=== PATIENT | male | born 1975 | race Caucasian/White ===

== ENCOUNTER 2017-11-18 17:40 | Inpatient (IN) | payer OTHER ==
[~2017-11-18] VITALS: Ht 193 cm; Wt 88.5 kg
[2017-11-18 17:45] VITALS: BP 141/89
[2017-11-18] MEDS ORDERED: ABILIFY15 MG ORAL (17:47)
[2017-11-18] MEDS ORDERED: LEXAPRO10 MG ORAL (17:47)
[2017-11-18] MEDS ORDERED: WELLBUTRIN SR100 MG ORAL (17:47)
[2017-11-18] MEDS ORDERED: KLONOPIN0.5 MG ORAL (17:47)
[2017-11-18] MEDS ORDERED: NALTREXONE HCL50 MG PO (17:47)
--- NOTE | 2017-11-18 18:06 | Emergency Room Report ---
History of Present Illness General Chief Complaint: Syncope Source: Patient, EMS Present Illness HPI 42-year-old male, history of seizures 10 years ago, used to be on Depakote, anxiety, presenting with syncopal episode. Per EMS, his coworkers came to his house to tell him that he got fired. He became extremely anxious and he had a witnessed syncopal episode. He did not hit the ground. When EMS got there he was awake but very diaphoretic. They checked a monitor and sometimes his heart rate would go as low as 37, but he would be awake and alert. Right now patient is just complaining of anxiety as well as chest pain. Did say that he took a Klonopin. Denies any other drug use. EMS says that there was no seizure like activity Allergies: Uncoded Allergies: PENICILLIN (Allergy, Unknown, 11/18/17) Patient History Past Medical History: see triage record Past Surgical History: none Pertinent Family History: none Reviewed Nursing Documentation: PMH: Agreed; PSxH: Agreed Nursing Documentation-PMH Past Medical History: No History, Except For Hx Gastrointestinal Problems: Yes - Crohn's disease History Of Psychiatric Problem: Yes - Anxiety Hx Seizures: Yes Review of Systems All Other Systems: negative except mentioned in HPI Physical Exam Vital Signs Date Time Temp Pulse Resp B/P (MAP) Pulse Ox O2 Delivery O2 Flow Rate FiO2 11/18/17 17:37 97.5 67 16 123/80 99 Room Air 97.5 Sp02 EP Interpretation: reviewed, normal General Appearance: alert, GCS 15, non-toxic, moderate distress Head: normocephalic, atraumatic Eyes: bilateral eye normal inspection, bilateral eye PERRL, bilateral eye EOMI ENT: normal ENT inspection, normal pharynx, normal voice, moist mucus membranes Neck: normal inspection, full range of motion, supple Respiratory: normal inspection, lungs clear, normal breath sounds, no respiratory distress, no retraction, no wheezing, speaking full sentences, chest symmetrical Cardiovascular #1: normal inspection, regular rate, rhythm, normal capillary refill Cardiovascular #2: 2+ radial (R), 2+ radial (L) Gastrointestinal: normal inspection, non tender, soft, non-distended, no guarding Musculoskeletal: normal inspection, back normal, normal range of motion, non- tender Neurologic: normal inspection, alert, oriented x3, responsive, creative engagement director III-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 orthostatic / hypovolemic/dehydration vs. cardiac arrhythmia (SVT , Afib) vs. cardiac vs. metabolic (hypoglycemia, hypoxia) versus toxicology Plan: bgm, cbc, bmp, ekg, cxr consider IVF ER course: Patient has otherwise been stable during ED stay, no episodes of bradycardia, workup is negative with the exception of mild hypokalemia. At this time patient still does not recall how he syncopized, and in the absence of prodromal symptoms, unlikely too. Vasovagal reaction, and the setting of him having a history of heart rate in the 30s he will require admission to the hospital Disposition: Patient is be admitted to tele under Dr Hale who has accepted pt under his care Please note that this Emergency Department Report was dictated using [employer] ([employer])form setter technology software, occasionally this can lead to erroneous entry secondary to interpretation by the dictation equipment. EKG Diagnostic Results EP Interpretation: Yes Rate: Bradycardic Rhythm: NSR ST Segments: T-wave inversion in lead 3 ASA given to patient: No Rhythm Strip EP Interpretation: Yes Rate: 54 Rhythm: NSR, no PVCs, no ectopy Chest X-ray CXR: Ordered: Yes 1 view Indication: Chest pain EP interpretation: Yes Interpretation: No consolidation, no effusion, no PTX, no acute cardiopulmonary disease Impression: No acute disease Electronically signed by Minnie Laureano MD Laboratory Tests Test 11/18/17 17:45 11/18/17 18:30 White Blood Count 6.8 K/UL (4.8-10.8) Red Blood Count 4.99 M/UL (4.70-6.10) Hemoglobin 15.3 G/DL (14.2-18.0) Hematocrit 43.7 % (42.0-52.0) Mean Corpuscular Volume 88 FL (80-99) Mean Corpuscular Hemoglobin 30.7 PG (27.0-31.0) Mean Corpuscular Hemoglobin Concent 35.1 G/DL (32.0-36.0) Red Cell Distribution Width 11.7 % (11.6-14.8) Platelet Count 200 K/UL (150-450) Mean Platelet Volume 5.3 FL (6.5-10.1) L Neutrophils (%) (Auto) 68.1 % (45.0-75.0) Lymphocytes (%) (Auto) 21.4 % (20.0-45.0) Monocytes (%) (Auto) 7.1 % (1.0-10.0) Eosinophils (%) (Auto) 2.8 % (0.0-3.0) Basophils (%) (Auto) 0.6 % (0.0-2.0) Sodium Level 139 MMOL/L (136-145) Potassium Level 3.1 MMOL/L (3.5-5.1) L Chloride Level 104 MMOL/L (98-107) Carbon Dioxide Level 27 MMOL/L (21-32) Anion Gap 8 mmol/L (5-15) Blood Urea Nitrogen 13 mg/dL (7-18) Creatinine 1.0 MG/DL (0.55-1.30) Estimate Glomerular Filtration Rate > 60 mL/min (>60) Glucose Level 131 MG/DL (74-106) H Calcium Level 9.4 MG/DL (8.5-10.1) Total Bilirubin 0.8 MG/DL (0.2-1.0) Aspartate Amino Transferase (AST) 16 U/L (15-37) Alanine Aminotransferase (ALT) 26 U/L (12-78) Alkaline Phosphatase 71 U/L (46-116) Troponin I 0.000 ng/mL (0.000-0.056) Total Protein 7.6 G/DL (6.4-8.2) Albumin 3.8 G/DL (3.4-5.0) Globulin 3.8 g/dL Albumin/Globulin Ratio 1.0 (1.0-2.7) Urine Color Yellow Urine Appearance Clear Urine pH 5 (4.5-8.0) Urine Specific [place] 1.025 (1.005-1.035) Urine Protein 1+ (NEGATIVE) H Urine Glucose (UA) Negative (NEGATIVE) Urine Ketones 1+ (NEGATIVE) H Urine Blood Negative (NEGATIVE) Urine Nitrite Negative (NEGATIVE) Urine Bilirubin Negative (NEGATIVE) Urine Urobilinogen Normal MG/DL (0.0-1.0) Urine Leukocyte Esterase Negative (NEGATIVE) Urine RBC 0-2 /HPF (0 - 0) H Urine WBC 0-2 /HPF (0 - 0) Urine Squamous Epithelial Cells None /LPF (NONE/OCC) Urine Bacteria None /HPF (NONE) Opiates Screen Pending Urine Opiates Screen Negative (NEGATIVE) Oxycodone Level Pending Blood Methadone Screen Pending Blood Propoxyphene Screen Pending Blood Barbiturates Screen Pending Urine Barbiturates Screen Negative (NEGATIVE) Phencyclidine (PCP) Screen Pending Amphetamines Screen Pending Urine Amphetamines Screen Negative (NEGATIVE) Benzodiazepines Screen Pending Urine Benzodiazepines Screen Negative (NEGATIVE) Blood Cocaine/Metabolite Screen Pending Urine Cocaine Screen Negative (NEGATIVE) Marijuana (THC) Screen Pending Urine Marijuana (THC) Screen Negative (NEGATIVE) Blood Drug Screen Comment Pending Last Vital Signs Date Time Temp Pulse Resp B/P (MAP) Pulse Ox O2 Delivery O2 Flow Rate FiO2 11/18/17 17:45 97.5 58 16 141/89 99 Room Air 97.5 Disposition: ADMITTED INPATIENT Condition: Minnie Centeno M.D. Nov 18, 2017 18:06
[2017-11-18 18:07] LABS: BASOPHILS % (AUTO) 0.6 % (0.0-2.0); EOSINOPHILS % (AUTO) 2.8 % (0.0-3.0); HEMATOCRIT 43.7 % (42.0-52.0); HEMOGLOBIN 15.3 G/DL (14.2-18.0); LYMPHOCYTES % (AUTO) 21.4 % (20.0-45.0); MEAN CORPUSCULAR VOLUME 88 FL (80-99); MONOCYTES % (AUTO) 7.1 % (1.0-10.0); NEUTROPHILS % (AUTO) 68.1 % (45.0-75.0); PLATELET COUNT 200 K/UL (150-450); RED BLOOD COUNT 4.99 M/UL (4.70-6.10); RED CELL DISTRIBUTION WIDTH 11.7 % (11.6-14.8); WHITE BLOOD COUNT 6.8 K/UL (4.8-10.8)
[2017-11-18 18:21] LABS: ANION GAP 8 mmol/L (5-15); BLOOD UREA NITROGEN 13 mg/dL (7-18); CALCIUM 9.4 MG/DL (8.5-10.1); CARBON DIOXIDE 27 MMOL/L (21-32); CHLORIDE 104 MMOL/L (98-107); POTASSIUM 3.1 MMOL/L (3.5-5.1); SODIUM 139 MMOL/L (136-145)
[2017-11-18 18:24] LABS: ALANINE AMINOTRANSFERASE 26 U/L (12-78); ALBUMIN 3.8 G/DL (3.4-5.0); ALKALINE PHOSPHATASE 71 U/L (46-116); ASPARTATE AMINO TRANSFERASE 16 U/L (15-37); BILIRUBIN,TOTAL 0.8 MG/DL (0.2-1.0)
[2017-11-18 18:37] VITALS: BP 139/89
[2017-11-18 19:00] LABS: APPEARANCE,URINE CLEAR; BILIRUBIN, URINE NEGATIVE (NEGATIVE); GLUCOSE, URINE (UA) NEGATIVE (NEGATIVE); KETONES,URINE 1+ (NEGATIVE); LEUKOCYTE ESTERASE ,URINE NEGATIVE (NEGATIVE); NITRITE,URINE NEGATIVE (NEGATIVE); PH,URINE 5 (4.5-8.0); PROTEIN,URINE 1+ (NEGATIVE); UROBILINOGEN,URINE NORMAL MG/DL (0.0-1.0)
[2017-11-18 19:01] LABS: COLOR,URINE YELLOW
[2017-11-18 19:22] VITALS: BP 133/84
[2017-11-18 20:18] VITALS: BP 130/78
[2017-11-18 21:53] VITALS: BP 128/65
[2017-11-19] VITALS: BP 144/97
[2017-11-19] MEDS ORDERED: clonazePAM 0.5mg tab ORAL PRN
[2017-11-19 04:00] VITALS: BP 142/77
[2017-11-19 08:00] VITALS: BP 137/81
[2017-11-19 08:01] LABS: BASOPHILS % (AUTO) 0.7 % (0.0-2.0); EOSINOPHILS % (AUTO) 3.3 % (0.0-3.0); HEMATOCRIT 45.3 % (42.0-52.0); HEMOGLOBIN 15.8 G/DL (14.2-18.0); LYMPHOCYTES % (AUTO) 18.5 % (20.0-45.0); MEAN CORPUSCULAR VOLUME 88 FL (80-99); MONOCYTES % (AUTO) 7.2 % (1.0-10.0); NEUTROPHILS % (AUTO) 70.3 % (45.0-75.0); PLATELET COUNT 186 K/UL (150-450); RED BLOOD COUNT 5.16 M/UL (4.70-6.10); RED CELL DISTRIBUTION WIDTH 11.7 % (11.6-14.8); WHITE BLOOD COUNT 8.3 K/UL (4.8-10.8)
[2017-11-19 08:08] LABS: ANION GAP 5 mmol/L (5-15); BLOOD UREA NITROGEN 14 mg/dL (7-18); CARBON DIOXIDE 32 MMOL/L (21-32); CHLORIDE 105 MMOL/L (98-107); PHOSPHORUS 4.3 MG/DL (2.5-4.9); POTASSIUM 3.6 MMOL/L (3.5-5.1); SODIUM 142 MMOL/L (136-145)
[2017-11-19] MEDS ORDERED: Heparin 5000 units/ml inj SUBQ SCH (09:00)
[2017-11-19] MEDS ORDERED: BuPROPion SR 150mg tab ORAL SCH (09:00)
--- NOTE | 2017-11-19 11:58 | Diagnostic Imaging Report ---
Indication: Chest pain Comparison: None A single view chest radiograph was obtained. Findings: Cardiomediastinal appearance is within normal limits for age. Pulmonary vascularity is appropriate. The diaphragmatic contour is smooth and costophrenic angles are sharp. No pleural effusions are identified. The bones are unremarkable. Impression: No acute findings
--- NOTE | 2017-11-19 12:03 | Consultation ---
History of Present Illness General Date patient seen: Nov 19, 2017 Chief Complaint: Syncope Present Illness HPI 42 year old male came from home for near syncopal episode and bradycardia. No previous OH/PE/DVT/CVA/Arrhythmias. Hx of chrohs in remission and depression/ anxiety. He got fired from h is job today and had pre syncope. Currently baseline with no complaints, NO injury/trauma. Chest x ray clear, labs normal, UDS negative. Allergies: Coded Allergies: CODEINE (Verified Allergy, Unknown, 11/18/17) MERCAPTOPURINE (Verified Allergy, Unknown, 11/18/17) Uncoded Allergies: PENICILLIN (Allergy, Unknown, 11/18/17) Medication History Scheduled Aripiprazole* (Abilify*), 15 MG ORAL DAILY, (Reported) Bupropion Sr* (Wellbutrin Sr*), 300 MG ORAL TID, (Reported) Escitalopram Oxalate* (Lexapro*), Unknown Dose ORAL DAILY, (Reported) Naltrexone Hcl (Naltrexone Hcl), Unknown Dose PO DAILY, (Reported) Scheduled PRN Clonazepam* (Klonopin*), 0.5 MG ORAL Q6H PRN for For Anxiety, (Reported) Patient History Healthcare decision maker Resuscitation status Full Code Advanced Directive on File Review of Systems Constitutional: Reports: no symptoms Eye: Reports: no symptoms ENT: Reports: no symptoms Respiratory: Reports: no symptoms Cardiovascular: Reports: no symptoms Gastrointestinal: Reports: no symptoms Genitourinary: Reports: no symptoms Musculoskeletal: Reports: no symptoms Skin: Reports: no symptoms Psychiatric: Reports: no symptoms Neurological: Reports: no symptoms Endocrine: Reports: no symptoms Hematologic/Lymphatic: Reports: no symptoms Physical Exam General Appearance: no apparent distress, alert Lines, tubes and drains: peripheral HEENT: normocephalic, atraumatic Neck: non-tender, normal alignment Respiratory/Chest: chest wall non-tender, lungs clear Cardiovascular/Chest: normal peripheral pulses, normal rate, regular rhythm Abdomen: normal bowel sounds, non tender Extremities: normal range of motion, non-tender 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 normal, no motor/sensory deficits, alert, oriented x 3, responsive Last 24 Hour Vital Signs Date Time Temp Pulse Resp B/P (MAP) Pulse Ox O2 Delivery O2 Flow Rate FiO2 11/19/17 11:28 Room Air 11/19/17 08:00 56 11/19/17 08:00 98.6 59 20 137/81 (99) 98 98.6 11/19/17 04:00 49 11/19/17 04:00 97.9 56 20 142/77 (98) 98 97.9 11/19/17 00:18 Room Air 11/19/17 00:00 58 11/19/17 00:00 98.0 65 20 144/97 (113) 97 98.0 11/18/17 22:32 97.5 63 18 128/65 99 Room Air 97.5 11/18/17 21:53 97.5 63 18 128/65 99 Room Air 97.5 11/18/17 21:39 97.8 11/18/17 20:24 97.8 11/18/17 20:18 97.8 64 18 130/78 99 Room Air 97.8 11/18/17 19:22 98.0 62 20 133/84 99 Room Air 98.0 11/18/17 18:37 97.5 63 16 139/89 99 Room Air 97.5 11/18/17 17:45 97.5 58 16 141/89 99 Room Air 97.5 11/18/17 17:37 97.5 67 16 123/80 99 Room Air 97.5 Intake and Output 11/18/17 11/19/17 19:00 07:00 # Voids 1 2 Laboratory Tests Test 11/18/17 17:45 11/18/17 18:30 11/19/17 06:50 White Blood Count 6.8 K/UL (4.8-10.8) 8.3 K/UL (4.8-10.8) Red Blood Count 4.99 M/UL (4.70-6.10) 5.16 M/UL (4.70-6.10) Hemoglobin 15.3 G/DL (14.2-18.0) 15.8 G/DL (14.2-18.0) Hematocrit 43.7 % (42.0-52.0) 45.3 % (42.0-52.0) Mean Corpuscular Volume 88 FL (80-99) 88 FL (80-99) Mean Corpuscular Hemoglobin 30.7 PG (27.0-31.0) 30.5 PG (27.0-31.0) Mean Corpuscular Hemoglobin Concent 35.1 G/DL (32.0-36.0) 34.8 G/DL (32.0-36.0) Red Cell Distribution Width 11.7 % (11.6-14.8) 11.7 % (11.6-14.8) Platelet Count 200 K/UL (150-450) 186 K/UL (150-450) Mean Platelet Volume 5.3 FL (6.5-10.1) L 5.6 FL (6.5-10.1) L Neutrophils (%) (Auto) 68.1 % (45.0-75.0) 70.3 % (45.0-75.0) Lymphocytes (%) (Auto) 21.4 % (20.0-45.0) 18.5 % (20.0-45.0) L Monocytes (%) (Auto) 7.1 % (1.0-10.0) 7.2 % (1.0-10.0) Eosinophils (%) (Auto) 2.8 % (0.0-3.0) 3.3 % (0.0-3.0) H Basophils (%) (Auto) 0.6 % (0.0-2.0) 0.7 % (0.0-2.0) Sodium Level 139 MMOL/L (136-145) 142 MMOL/L (136-145) Potassium Level 3.1 MMOL/L (3.5-5.1) L 3.6 MMOL/L (3.5-5.1) Chloride Level 104 MMOL/L (98-107) 105 MMOL/L (98-107) Carbon Dioxide Level 27 MMOL/L (21-32) 32 MMOL/L (21-32) Anion Gap 8 mmol/L (5-15) 5 mmol/L (5-15) Blood Urea Nitrogen 13 mg/dL (7-18) 14 mg/dL (7-18) Creatinine 1.0 MG/DL (0.55-1.30) 1.0 MG/DL (0.55-1.30) Estimat Glomerular Filtration Rate > 60 mL/min (>60) > 60 mL/min (>60) Glucose Level 131 MG/DL (74-106) H 99 MG/DL (74-106) Calcium Level 9.4 MG/DL (8.5-10.1) 9.0 MG/DL (8.5-10.1) Total Bilirubin 0.8 MG/DL (0.2-1.0) Aspartate Amino Transf (AST/SGOT) 16 U/L (15-37) Alanine Aminotransferase (ALT/SGPT) 26 U/L (12-78) Alkaline Phosphatase 71 U/L (46-116) Troponin I 0.000 ng/mL (0.000-0.056) Total Protein 7.6 G/DL (6.4-8.2) Albumin 3.8 G/DL (3.4-5.0) Globulin 3.8 g/dL Albumin/Globulin Ratio 1.0 (1.0-2.7) Urine Color Yellow Urine Appearance Clear Urine pH 5 (4.5-8.0) Urine Specific [place] 1.025 (1.005-1.035) Urine Protein 1+ (NEGATIVE) H Urine Glucose (UA) Negative (NEGATIVE) Urine Ketones 1+ (NEGATIVE) H Urine Blood Negative (NEGATIVE) Urine Nitrite Negative (NEGATIVE) Urine Bilirubin Negative (NEGATIVE) Urine Urobilinogen Normal MG/DL (0.0-1.0) Urine Leukocyte Esterase Negative (NEGATIVE) Urine RBC 0-2 /HPF (0 - 0) H Urine WBC 0-2 /HPF (0 - 0) Urine Squamous Epithelial Cells None /LPF (NONE/OCC) Urine Bacteria None /HPF (NONE) Opiates Screen Pending Urine Opiates Screen Negative (NEGATIVE) Oxycodone Level Pending Blood Methadone Screen Pending Blood Propoxyphene Screen Pending Blood Barbiturates Screen Pending Urine Barbiturates Screen Negative (NEGATIVE) Phencyclidine (PCP) Screen Pending Amphetamines Screen Pending Urine Amphetamines Screen Negative (NEGATIVE) Benzodiazepines Screen Pending Urine Benzodiazepines Screen Negative (NEGATIVE) Blood Cocaine/Metabolite Screen Pending Urine Cocaine Screen Negative (NEGATIVE) Marijuana (THC) Screen Pending Urine Marijuana (THC) Screen Negative (NEGATIVE) Blood Drug Screen Comment Pending Phosphorus Level 4.3 MG/DL (2.5-4.9) Magnesium Level 2.1 MG/DL (1.8-2.4) Thyroid Stimulating Hormone (TSH) 0.719 uiU/mL (0.358-3.740) Height (Feet): 6 Height (Inches): 4.00 Weight (Pounds): 195 Medications Current Medications Medications (Trade) Dose Ordered Sig/Milagros Route PRN Reason Start Time Stop Time Status Last Admin Dose Admin Acetaminophen (Tylenol) 650 mg Q6H PRN ORAL Mild Pain/Temp > 100.5 11/19/17 00:00 12/19/17 00:00 Aripiprazole (Abilify) 15 mg DAILY ORAL 11/19/17 09:00 12/19/17 08:59 11/19/17 08:38 Bupropion HCl (Wellbutrin SR) 150 mg BID ORAL 11/19/17 09:00 12/19/17 08:59 11/19/17 08:38 Clonazepam (KlonoPIN) 0.5 mg Q6H PRN ORAL For Anxiety 11/19/17 00:00 11/26/17 00:00 Escitalopram Oxalate (Lexapro) 10 mg DAILY ORAL 11/19/17 09:00 12/19/17 08:59 11/19/17 08:38 Heparin Sodium (Porcine) (Heparin 5000 units/ml) 5,000 units EVERY 12 HOURS SUBQ 11/19/17 09:00 12/19/17 08:59 11/19/17 08:39 Ondansetron HCl (Zofran) 4 mg Q4H PRN IVP Nausea & Vomiting 11/19/17 00:00 12/19/17 00:00 Assessment/Plan Status: stable Assessment/Plan Assessment: Sinus bradycardia Presyncope Crohns in remission Plan: Presentation likely vaso-vagal, currently stable with no complaints Bradycardia noted - no pauses or ectopy, patient is athletic Outpatient echocardiogram Fluid hydration Ok to discharge home today Daniel Huitron MD Nov 19, 2017 12:03
--- NOTE | 2017-11-19 13:15 | Consultation ---
History of Present Illness General Date patient seen: Nov 19, 2017 Chief Complaint: Syncope Present Illness HPI 42-year-old male with history of seizures 10 years ago, used to be on Depakote , anxiety, presenting with syncopal episode. When EMS got there he was awake but very diaphoretic. They checked a monitor and sometimes his heart rate would go as low as 37, but he would be awake and alert. Right now patient is just complaining of anxiety as well as chest pain. Did say that he took a Klonopin. Denies any other drug use. Allergies: Coded Allergies: CODEINE (Verified Allergy, Unknown, 11/18/17) MERCAPTOPURINE (Verified Allergy, Unknown, 11/18/17) Uncoded Allergies: PENICILLIN (Allergy, Unknown, 11/18/17) Medication History Scheduled Aripiprazole* (Abilify*), 15 MG ORAL DAILY, (Reported) Bupropion Sr* (Wellbutrin Sr*), 300 MG ORAL TID, (Reported) Escitalopram Oxalate* (Lexapro*), Unknown Dose ORAL DAILY, (Reported) Naltrexone Hcl (Naltrexone Hcl), Unknown Dose PO DAILY, (Reported) Scheduled PRN Clonazepam* (Klonopin*), 0.5 MG ORAL Q6H PRN for For Anxiety, (Reported) Patient History Healthcare decision maker Resuscitation status Full Code Advanced Directive on File Past Medical/Surgical History Past Medical/Surgical History: (1) Depression Review of Systems All Other Systems: negative except mentioned in HPI Physical Exam General Appearance: WD/WN Lines, tubes and drains: peripheral HEENT: normocephalic, atraumatic Neck: non-tender, normal alignment Respiratory/Chest: chest wall non-tender, lungs clear Breasts: no masses Cardiovascular/Chest: normal peripheral pulses Abdomen: normal bowel sounds Genitourinary/Rectal: normal genital exam Last 24 Hour Vital Signs Date Time Temp Pulse Resp B/P (MAP) Pulse Ox O2 Delivery O2 Flow Rate FiO2 11/19/17 11:28 Room Air 11/19/17 08:00 56 11/19/17 08:00 98.6 59 20 137/81 (99) 98 98.6 11/19/17 04:00 49 11/19/17 04:00 97.9 56 20 142/77 (98) 98 97.9 11/19/17 00:18 Room Air 11/19/17 00:00 58 11/19/17 00:00 98.0 65 20 144/97 (113) 97 98.0 11/18/17 22:32 97.5 63 18 128/65 99 Room Air 97.5 11/18/17 21:53 97.5 63 18 128/65 99 Room Air 97.5 11/18/17 21:39 97.8 11/18/17 20:24 97.8 11/18/17 20:18 97.8 64 18 130/78 99 Room Air 97.8 11/18/17 19:22 98.0 62 20 133/84 99 Room Air 98.0 11/18/17 18:37 97.5 63 16 139/89 99 Room Air 97.5 11/18/17 17:45 97.5 58 16 141/89 99 Room Air 97.5 11/18/17 17:37 97.5 67 16 123/80 99 Room Air 97.5 Intake and Output 11/18/17 11/19/17 19:00 07:00 # Voids 1 2 Laboratory Tests Test 11/18/17 17:45 11/18/17 18:30 11/19/17 06:50 White Blood Count 6.8 K/UL (4.8-10.8) 8.3 K/UL (4.8-10.8) Red Blood Count 4.99 M/UL (4.70-6.10) 5.16 M/UL (4.70-6.10) Hemoglobin 15.3 G/DL (14.2-18.0) 15.8 G/DL (14.2-18.0) Hematocrit 43.7 % (42.0-52.0) 45.3 % (42.0-52.0) Mean Corpuscular Volume 88 FL (80-99) 88 FL (80-99) Mean Corpuscular Hemoglobin 30.7 PG (27.0-31.0) 30.5 PG (27.0-31.0) Mean Corpuscular Hemoglobin Concent 35.1 G/DL (32.0-36.0) 34.8 G/DL (32.0-36.0) Red Cell Distribution Width 11.7 % (11.6-14.8) 11.7 % (11.6-14.8) Platelet Count 200 K/UL (150-450) 186 K/UL (150-450) Mean Platelet Volume 5.3 FL (6.5-10.1) L 5.6 FL (6.5-10.1) L Neutrophils (%) (Auto) 68.1 % (45.0-75.0) 70.3 % (45.0-75.0) Lymphocytes (%) (Auto) 21.4 % (20.0-45.0) 18.5 % (20.0-45.0) L Monocytes (%) (Auto) 7.1 % (1.0-10.0) 7.2 % (1.0-10.0) Eosinophils (%) (Auto) 2.8 % (0.0-3.0) 3.3 % (0.0-3.0) H Basophils (%) (Auto) 0.6 % (0.0-2.0) 0.7 % (0.0-2.0) Sodium Level 139 MMOL/L (136-145) 142 MMOL/L (136-145) Potassium Level 3.1 MMOL/L (3.5-5.1) L 3.6 MMOL/L (3.5-5.1) Chloride Level 104 MMOL/L (98-107) 105 MMOL/L (98-107) Carbon Dioxide Level 27 MMOL/L (21-32) 32 MMOL/L (21-32) Anion Gap 8 mmol/L (5-15) 5 mmol/L (5-15) Blood Urea Nitrogen 13 mg/dL (7-18) 14 mg/dL (7-18) Creatinine 1.0 MG/DL (0.55-1.30) 1.0 MG/DL (0.55-1.30) Estimat Glomerular Filtration Rate > 60 mL/min (>60) > 60 mL/min (>60) Glucose Level 131 MG/DL (74-106) H 99 MG/DL (74-106) Calcium Level 9.4 MG/DL (8.5-10.1) 9.0 MG/DL (8.5-10.1) Total Bilirubin 0.8 MG/DL (0.2-1.0) Aspartate Amino Transf (AST/SGOT) 16 U/L (15-37) Alanine Aminotransferase (ALT/SGPT) 26 U/L (12-78) Alkaline Phosphatase 71 U/L (46-116) Troponin I 0.000 ng/mL (0.000-0.056) Total Protein 7.6 G/DL (6.4-8.2) Albumin 3.8 G/DL (3.4-5.0) Globulin 3.8 g/dL Albumin/Globulin Ratio 1.0 (1.0-2.7) Urine Color Yellow Urine Appearance Clear Urine pH 5 (4.5-8.0) Urine Specific [place] 1.025 (1.005-1.035) Urine Protein 1+ (NEGATIVE) H Urine Glucose (UA) Negative (NEGATIVE) Urine Ketones 1+ (NEGATIVE) H Urine Blood Negative (NEGATIVE) Urine Nitrite Negative (NEGATIVE) Urine Bilirubin Negative (NEGATIVE) Urine Urobilinogen Normal MG/DL (0.0-1.0) Urine Leukocyte Esterase Negative (NEGATIVE) Urine RBC 0-2 /HPF (0 - 0) H Urine WBC 0-2 /HPF (0 - 0) Urine Squamous Epithelial Cells None /LPF (NONE/OCC) Urine Bacteria None /HPF (NONE) Opiates Screen Pending Urine Opiates Screen Negative (NEGATIVE) Oxycodone Level Pending Blood Methadone Screen Pending Blood Propoxyphene Screen Pending Blood Barbiturates Screen Pending Urine Barbiturates Screen Negative (NEGATIVE) Phencyclidine (PCP) Screen Pending Amphetamines Screen Pending Urine Amphetamines Screen Negative (NEGATIVE) Benzodiazepines Screen Pending Urine Benzodiazepines Screen Negative (NEGATIVE) Blood Cocaine/Metabolite Screen Pending Urine Cocaine Screen Negative (NEGATIVE) Marijuana (THC) Screen Pending Urine Marijuana (THC) Screen Negative (NEGATIVE) Blood Drug Screen Comment Pending Phosphorus Level 4.3 MG/DL (2.5-4.9) Magnesium Level 2.1 MG/DL (1.8-2.4) Thyroid Stimulating Hormone (TSH) 0.719 uiU/mL (0.358-3.740) Height (Feet): 6 Height (Inches): 4.00 Weight (Pounds): 195 Medications Current Medications Medications (Trade) Dose Ordered Sig/Milagros Route PRN Reason Start Time Stop Time Status Last Admin Dose Admin Acetaminophen (Tylenol) 650 mg Q6H PRN ORAL Mild Pain/Temp > 100.5 11/19/17 00:00 9/30/18 00:00 Aripiprazole (Abilify) 15 mg DAILY ORAL 11/19/17 09:00 12/19/17 08:59 11/19/17 08:38 Bupropion HCl (Wellbutrin SR) 150 mg BID ORAL 11/19/17 09:00 12/19/17 08:59 11/19/17 08:38 Clonazepam (KlonoPIN) 0.5 mg Q6H PRN ORAL For Anxiety 11/19/17 00:00 11/26/17 00:00 Escitalopram Oxalate (Lexapro) 10 mg DAILY ORAL 11/19/17 09:00 12/19/17 08:59 11/19/17 08:38 Heparin Sodium (Porcine) (Heparin 5000 units/ml) 5,000 units EVERY 12 HOURS SUBQ 11/19/17 09:00 12/19/17 08:59 11/19/17 08:39 Ondansetron HCl (Zofran) 4 mg Q4H PRN IVP Nausea & Vomiting 11/19/17 00:00 12/19/17 00:00 Assessment/Plan Problem List: (1) Syncope ICD Codes: R55 - Syncope and collapse SNOMED: 176237081 (2) Depression ICD Codes: F32.9 - Major depressive disorder, single episode, unspecified SNOMED: 80997121 Assessment/Plan cardiac evaluation telemetry monitoring Marvin Ying MD Nov 19, 2017 13:15
--- NOTE | 2017-11-19 15:55 | History & Physical ---
History and Physical History & Physicial Alex Hale MD Nov 19, 2017 15:55
[2017-11-19 16:00] VITALS: BP 132/79
--- NOTE | 2017-11-19 20:00 | History and Physical Report ---
DATE OF ADMISSION: 11/18/2017 REASON FOR ADMISSION: Weakness and syncope. HISTORY OF PRESENT ILLNESS: This is a 42-year-old gentleman with past medical history significant for seizure disorder over past 10 years and history of anxiety disorder who presented to the hospital after having syncopal episode. The patient's coworker came to his house got fired and he became extremely anxious and had a witnessed syncopal episode, did not hit his head. EMS was called. The patient was awake and very diaphoretic and they checked the monitor and some sometimes the heart rate was as low as 37 and the patient subsequently was brought into the emergency room. Shortly after initial evaluation in the emergency, the patient was admitted to the hospital with syncopal episode, bradycardia, hypokalemia. PAST MEDICAL AND SURGICAL HISTORY: As above history of syncope. The patient also has a history of seizure disorder, Crohn's disease, and anxiety. MEDICATIONS: At home, please refer to medication reconciliation. ALLERGIES: To penicillin. SOCIAL HISTORY: The patient denies any smoking, alcohol, substance. FAMILY HISTORY: Noncontributory. REVIEW OF SYSTEMS: Mostly as above. Denies any dysuria, frequency, or hematuria. Denies any hemoptysis or hematochezia. PHYSICAL EXAMINATION: VITAL SIGNS: On admission, temperature 97.5, pulse of 67, respirations 16, and blood pressure 123/80. GENERAL: The patient is awake, responsive, in no acute distress. HEENT: Head and neck examination, pupils are reactive to light. Extraocular movements are intact. NECK: Supple. No JVD. LUNGS: Good air entry. No wheezing or rales. HEART: S1 and S2. Regular rhythm. No gallops. ABDOMEN: Soft, nondistended, and nontender. Positive bowel sounds. EXTREMITIES: No cyanosis, clubbing, or edema. NEUROLOGIC: Cranial nerves II through XII grossly intact. Motor is 5/5 in all extremities. Gait is intact. LABORATORY AND DIAGNOSTIC DATA: On admission, sodium is 139, potassium 3.1, chloride 104, bicarb 27, BUN 13, creatinine 1.0, glucose 131. First troponin 0.01. TSH is 0.719. WBC of 6.8, hemoglobin 15, hematocrit 43, and platelet 200. Urine drug screen is negative for urinalysis, +1 protein, +1 ketone, 0 to 2 rbc's, negative leukocytes, negative nitrite. The patient's chest x-ray, no acute findings. ASSESSMENT: 1. Syncope, possible due to dehydration. 2. Bradycardia. 3. Hypokalemia. 4. Seizure disorder. 5. Crohn's disease in remission. PLAN: Admit to telemetry. Most likely vasovagal, followup with from Cardiology and Dr. Ying from Pulmonary Critical Care. IV hydration. Monitor laboratory. If the patient's status improves, consider discharge home later on today. Alex Hale M.D. DR: Consuelo JOB#: [id number] CC:
--- NOTE | 2017-11-20 08:47 | Cardiology Report ---
APPROVED REPORT EXAM: Two-dimensional and M-mode echocardiogram with Doppler and color Doppler. INDICATION Bradycardia M-Mode DIMENSIONS IVSd1.5 (0.7-1.1cm)Left Atrium (MM)3.6 (1.6-4.0cm) LVDd4.5 (3.5-5.6cm)Aortic Root4.2 (2.0-3.7cm) PWd1.6 (0.7-1.1cm)Aortic Cusp Exc.2.5 (1.5-2.0cm) LVDs3.3 (2.5-4.0cm) PWs1.8 cm Normal left ventricular chamber size, systolic function and wall motion. Left ventricular ejection fraction estimated to be 60 %. Mild left ventricular hypertrophy. Anterior Echo-free space, may be due to pericardial fat or effusion. Mild left atrial enlargement. Right cardiac chamber sizes are within normal limits. Mild focal aortic valve sclerosis with adequate cusp excursion. Mildly thickened mitral valve leaflets with normal excursion. Mitral annulus and aortic root calcification. Aortic root dilatation. Pulmonic valve not well visualized. Normal tricuspid valve structure. IVC dilated at 2.7 cm with slight physiologic collapse suggestive of increased RA pressure. A color flow and spectral Doppler study was performed and revealed: Trace mitral regurgitation. Mitral inflow indicates normal left ventricular diastolic function. Trace tricuspid regurgitation. Tricuspid systolic velocities suggests peak right ventricular systolic pressure of 20 mmHg Trace pulmonic regurgitation present.
--- NOTE | 2017-11-22 13:35 | Discharge Summary ---
Discharge Summary Discharge Summary _ DATE OF ADMISSION: 11/18/2017 DATE OF DISCHARGE: 11/19/2017 REASON FOR ADMISSION: 42 years old male with history of seizure disorder , Crohn disease, depression and anxiety, presented after witnessed syncopal episode at home. The patient's coworker came to his house and told him that he was fired. Patient became very anxious and subsequently sustained a witnessed syncopal episode . Patient denied hitting his head. Paramedics were called. Patient was awake, extremely t diaphoretic and heart rate went as low as 37. However ,patient remained awake, alert and responsive. EKG revealed sinus bradycardia, no acute ischemic changes. Laboratory workup was stable except potassium - 3.1. Troponin was negative. Urinalysis negative for UTI. Urine toxicology screen was negative. Patient admitted with diagnoses of syncope possibly secondary to dehydration, bradycardia ,hypokalemia ,seizure disorder , Crohn disease in remission. CONSULTANTS: casting agent Dr. Huitron pulmonary Dr. Ying [facility] COURSE: Patient admitted to telemetry floor . Patient started on the IV hydration. EKG showed no acute ischemic changes, it demonstrated sinus bradycardia without pauses or ectopy. Sugar Plantation Manager and planting material unloader closely followed . Per casting agent , presentation was likely vasovagal ; patient was stable with no further complaints. ECG was with sinus bradycardia. Patient was athletic. Echocardiogram revealed preserved ejection fraction of 60% with mild left ventricular hypertrophy and no wall motion abnormality. Sugar Plantation Manager cleared patient for discharge. Pulse oximetry was stable on room air ,pulmonary toilet was on standby as needed. Hypokalemia was corrected. Seizure precautions maintained. No evidence of seizure while in the hospital. DVT prophylaxis provided. Home antidepressive medications resumed. Patient was recommended liberal oral hydration at home. Patient was stable for discharge. Due to rapid and unexpected improvement in patient's condition, the patient was discharged in one day. FINAL DIAGNOSES: Syncope probably secondary to dehydration Sinus bradycardia Hypokalemia Seizure disorder c Crohn disease in remission DISCHARGE MEDICATIONS: See Medication Reconciliation list. DISCHARGE INSTRUCTIONS: Patient was discharged home . Patient was counseled on return to ED precautions Follow up with primary care provider in one week. I have been assigned to dictate discharge summary for this account. I was not involved in the patient's management. Odalis Cleveland NP Nov 22, 2017 13:35
--- NOTE | 2017-11-23 17:38 | Cardiology Report ---
APPROVED REPORT EKG Measurement Heart [id number] Poor data quality, interpretation may be adversely affected Sinus bradycardia Rightward axis Borderline ECG
--- NOTE | 2017-11-24 16:20 | Cardiology Report ---
APPROVED REPORT EKG Measurement Heart [id number] Sinus bradycardia Moderate voltage criteria for LVH, may be normal variant Borderline ECG
== END 2017-11-19 17:29 | disposition home or self-care (01) | DRG 641 ==
LOC: EDBD 17:40 → EMR 19:24 → 2E 19:47 → EDBEDREQ 20:17
DX: E86.0 Dehydration (principal); R55 Syncope and collapse; R00.1 Bradycardia, unspecified; E87.6 Hypokalemia; G40.909 Epilepsy, unspecified, not intractable, without status epilepticus; Z87.19 Personal history of other diseases of the digestive system; F41.9 Anxiety disorder, unspecified; Z88.6 Allergy status to analgesic agent; Z88.0 Allergy status to penicillin; Z88.8 Allergy status to other drugs, medicaments and biological substances
CPT/HCPCS: 36415; 71045; 80048; 80053; 80301; 80307; 81003; 83735; 84100; 84443; 84484; 85025; 93005; 93306; 99285; J8499